=== PATIENT | female | born 1960 | race Caucasian/White ===

== ENCOUNTER 2017-07-05 11:33 | Emergency (ER) | payer MEDICAID, OTHER ==
[~2017-07-05] VITALS: Ht 160 cm; Wt 80.0 kg
[2017-07-05 11:45] VITALS: Ht 160 cm; Wt 80.0 kg
[2017-07-05] MEDS ORDERED: HYDROCODONE/APAP (5/325) TAB PO ONE (12:00)
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
[2017-07-05 13:37] VITALS: BP 140/88; PULSE 64; RESP 17
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
--- NOTE | 2017-07-05 14:50 | RADRPT ---
PROCEDURE: Left knee radiographs. CLINICAL INDICATION: Left knee pain. TECHNIQUE: Three views. Frontal, lateral, and oblique. COMPARISON: No prior studies are available for comparison. FINDINGS: There is no fracture or dislocation. The soft tissues are normal. There are degenerative changes with osteophytes arising from all 3 joint compartment margins. There is no joint space narrowing. There is no lytic or blastic lesion. There is no radiopaque foreign body. IMPRESSION: 1. Mild degenerative change. 2. Otherwise unremarkable images of the left knee. RPTAT: QQ .Miguel Bunch MD, MD Date Time Electronically viewed and signed by .Miguel Bunch MD, on 07/05/2017 14:50 .R/
--- NOTE | 2017-07-05 14:58 | RADRPT ---
PROCEDURE: XR Hip. CLINICAL INDICATION: Pain. TECHNIQUE: AP and external rotation lateral views of the left hip were performed. COMPARISON: None. FINDINGS: The soft tissues and bony elements are normal. The joint spaces are normal. The left SI joint and le ft hip joint are normal. IMPRESSION: 1. Normal left hip. RPTAT:AAJJ Physician Natty Date Time Electronically viewed and signed by Johnathan Horvath Physician on 07/05/2017 14:58 /
[2017-07-05] MEDS ORDERED: IBUP800T25 PO (15:00)
[2017-07-05] MEDS ORDERED: HYDR-906 PO (15:00)
== END 2017-07-05 15:51 | disposition home or self-care (01) ==
LOC: E/R 11:33
DX: S40.011A Contusion of right shoulder, initial encounter (principal); S70.02XA Contusion of left hip, initial encounter; V03.10XA Pedestrian on foot injured in collision with car, pick-up truck or van in traffic accident, initial encounter
CPT/HCPCS: 29505; 72125; 73030; 73510; 73562; Z7502; Z7610